=== PATIENT | female | born 1970 | race Two or more races ===

== ENCOUNTER 2023-09-09 17:20 | Emergency (ER) | payer OTHER ==
[~2023-09-09] VITALS: Ht 177.8 cm; Wt 79.8 kg
[2023-09-09] MEDS ORDERED: SYNTHROID150 MCG PO (18:34)
[2023-09-09] MEDS ORDERED: MECLIZINE HCL 25 MG TABLET PO STA (21:24)
[2023-09-09 21:49] LABS: HEMATOCRIT 43.3 % (36.0-45.00); HEMOGLOBIN 14.9 g/dL (12.0-15.00); MEAN CELL VOLUME 89.2 fL (80.00-100.00); MEAN CORPUSCULAR HEMOGLOBIN 30.7 pg (27.00-32.0); MEAN CORPUSCULAR HGB CONC 34.4 g/dl (32.0-36.0); PLATELET COUNT 448 K/uL (150-450); RED BLOOD COUNT 4.85 M/uL (4.00-6.00); RED CELL DISTRIBUTION WIDTH 13.3 % (11.5-14.5)
[2023-09-09 22:24] LABS: ALBUMIN 3.6 gm/dL (3.4-5.0); BILIRUBIN TOTAL 0.54 mg/dL (0.3-1.2); CALCIUM 9.5 mg/dL (8.5-10.1); CREATININE SERUM 1.26 mg/dL (0.55-1.02); GFR 44.25; GLOBULINA 3.8 G/DL (2.4-3.5); POTASSIUM 3.79 mEq/L (3.5-5.1); TOTAL PROTEIN 7.4 gm/dL (6.4-8.2)
[2023-09-09] MEDS ORDERED: 0.9 % SODIUM CHLORIDE 1,000 ML IV STA (23:36)
== END 2023-09-10 01:11 | disposition home or self-care (01) ==
LOC: ER 17:20
PROVIDERS: General Practice
DX: R53.81 Other malaise (principal); R42 Dizziness and giddiness; Z88.0 Allergy status to penicillin

== ENCOUNTER 2024-07-03 11:15 | Emergency (ER) | payer OTHER ==
[~2024-07-03] VITALS: Ht 177.8 cm; Wt 81.6 kg
[~2024-07-03 11:15] MED LIST: SYNTHROID150 MCG PO
[2024-07-03 15:26] LABS: URINE APPEARANCE Clear; URINE BILIRRUBIN Negative (NEGATIVE); URINE BLOOD Negative; URINE COLOR Yellow; URINE GLUCOSE Negative (NEGATIVE); URINE KETONE Negative (NEGATIVE); URINE LEUKOCYTE Trace; URINE NITRATE Negative; URINE PROTEIN Negative (NEGATIVE)
[2024-07-03 15:27] LABS: HEMATOCRIT 44.1 % (36.0-45.00); HEMOGLOBIN 14.8 g/dL (12.0-15.00); MEAN CELL VOLUME 91.7 fL (80.00-100.00); MEAN CORPUSCULAR HEMOGLOBIN 30.8 pg (27.00-32.0); MEAN CORPUSCULAR HGB CONC 33.6 g/dl (32.0-36.0); PLATELET COUNT 403 K/uL (150-450); RED BLOOD COUNT 4.81 M/uL (4.00-6.00); RED CELL DISTRIBUTION WIDTH 12.7 % (11.5-14.5)
[2024-07-03 15:30] LABS: URINE BACTERIA 972.9 uL (0.0-1933); URINE EPITHELIAL CELLS 24.3 uL (0.0-38.8); URINE RBC 3.5 uL (0.0-20.8); URINE WBC 26.9 uL (0.0-23.2)
[2024-07-03 15:55] LABS: ALBUMIN 3.9 gm/dL (3.4-5.0); BILIRUBIN TOTAL 1.19 mg/dL (0.3-1.2); CALCIUM 9.3 mg/dL (8.5-10.1); CREATININE SERUM 1.06 mg/dL (0.55-1.02); GFR 54.02; GLOBULINA 3.4 G/DL (2.4-3.5); POTASSIUM 3.78 mEq/L (3.5-5.1); TOTAL PROTEIN 7.3 gm/dL (6.4-8.2)
[2024-07-03] MEDS ORDERED: CIPRO500 MG PO (17:32)
== END 2024-07-03 18:52 | disposition home or self-care (01) ==
LOC: ER 11:18
DX: R10.9 Unspecified abdominal pain (principal); Z88.0 Allergy status to penicillin; N39.0 Urinary tract infection, site not specified; Z20.822 Contact with and (suspected) exposure to COVID-19